=== PATIENT | female | born 1990 | race African-American/Black ===

== ENCOUNTER → 2018-10-28 | Outpatient (CLI) | payer OTHER, MEDICAID ==
--- NOTE | 2018-10-31 01:37 | REP ---
Clinical: Status os . Rule out retained products of conception. . Technique: Transabdominal pelvic ultrasound followed by transvaginal examination for better evaluation of the endometrium and adnexa with color Doppler evaluation of the ovaries. Findings: Bladder is unremarkable and measures 7.4 x 9.4 x 7.6 cm . Normal anteverted uterus measures 8.2 x 3.8 x 4.3 cm . The endometrial complex measures 8.9 mm thickness with a trace amount of endometrial fluid noted. Color evaluation demonstrates no significant increased myometrial or endometrial flow. A small left posterior intramural fibroid measures 1 cm maximal diameter. Nabothian cysts in the cervical region measure up to 7.4 mm. Bilateral ovaries are normal in appearance. Right ovary measures 3.6 x 2.2 x 1.8 cm; Left ovary measures 3.2 x 1.3 x 2.3 cm. No pelvic fluid or pelvic abnormality appreciated. Impression: 1. No definite evidence to suggest retained products of conception. Correlation with serial HCG levels recommended. 2. Small posterior intramural fibroid. Electronically Signed by Silvestre Otto MD 10/31/2018 01:28 A
== END ==
LOC: M RAD 17:35
PROVIDERS: ATTEND Nurse Practitioner Family
DX: Z09 Encounter for follow-up examination after completed treatment for conditions other than malignant neoplasm (principal)